=== PATIENT | female | born 1985 | race African-American/Black ===

== ENCOUNTER 2018-12-29 21:25 | Emergency (ER) | payer OTHER ==
[~2018-12-29] VITALS: Ht 160 cm; Wt 136.1 kg
[~2018-12-29 21:25] MED LIST: ALBUTEROL INHAL17 GM IH; AMOXICILLIN 50500 M1 PO; AZITHROMYCIN 2250 MG PO; BENADRYL25 MG PO; FLAGYL500 MG PO; FLONASE 0.05%50 MCG NASAL; IBUPROFEN 600600 M1 PO; NOHOMEMEDICATIONS; PREDNISONE 20 M20 MG PO; PROMETHAZINE-C120 ML PO; ZPAK PO
[2018-12-30 02:23] VITALS: BP 119/59
== END 2018-12-30 02:24 | disposition home or self-care (01) ==
LOC: ER 21:25
DX: H53.8 Other visual disturbances (principal); R20.2 Paresthesia of skin; F17.210 Nicotine dependence, cigarettes, uncomplicated